=== PATIENT | male | born 1970 | race African-American/Black ===

== ENCOUNTER 2020-02-22 08:19 | Outpatient (CLI) | payer OTHER ==
--- NOTE | 2020-02-22 09:18 | MRI ---
MR OF THE RIGHT KNEE WITHOUT CONTRAST INDICATION: 49-year-old male with internal derangement of the right knee TECHNIQUE: Axial and coronal PD fat sat, sagittal T2 fat sat, sagittal PD turbo spin echo and T1 jonny nal images were obtained of the right knee. COMPARISON: Right knee radiograph dated January 05, 2020 FINDINGS: Joint effusion: None. Semimembranosus-medial gastrocnemius popliteal cyst: Tiny Wong's cyst Ligaments: The ACL, PCL, MCL and LCLC are intact. Extensor mechanism: Intact. Menisci: There is a horizontally oriented tear involving the body and posterior horn of the medial me niscus. There is a horizontally oriented oblique flap tear involving the posterior body, posterior junction and posterior horn of the lateral meniscus with a displaced meniscal flap overlying the ante rior junction of the lateral meniscus. Articular cartilage: There is a mild diffuse thinning of the articular cartilage of the major compart ments of the right knee. No large full-thickness defect is evident. Osseous structures: Normal marrow signal. Popliteus and IT band: Normal. IMPRESSION: 1. Medial and lateral meniscal tears. 2. 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
== END 2020-02-22 08:20 | disposition home or self-care (01) ==
LOC: BICMRI 08:19
PROVIDERS: ATTEND Family Medicine
DX: M23.91 Unspecified internal derangement of right knee (principal); S83.241A Other tear of medial meniscus, current injury, right knee, initial encounter; S83.281A Other tear of lateral meniscus, current injury, right knee, initial encounter

== ENCOUNTER 2020-03-28 08:51 | Outpatient (CLI) | payer OTHER ==
[2020-03-29 11:36] LABS: SARS-CoV-2 MS2 Positive; SARS-CoV-2 N Gene Negative; SARS-CoV-2 S Gene Negative; SARS-CoV-2 by NAA Not Detected (NotDetected); SARS-CoV-2 orf1ab Negative
== END 2020-03-28 08:52 | disposition home or self-care (01) ==
LOC: LABBT 08:51
PROVIDERS: ATTEND Orthopaedic Surgery
DX: Z01.812 Encounter for preprocedural laboratory examination (principal); Z11.59 Encounter for screening for other viral diseases; S83.241A Other tear of medial meniscus, current injury, right knee, initial encounter; S83.281A Other tear of lateral meniscus, current injury, right knee, initial encounter
CPT/HCPCS: 87635; U0003

== ENCOUNTER 2020-03-31 06:17 | Day surgery (SDC) | payer OTHER ==
[2020-03-28 12:48] VITALS: BMI 45.4
[2020-03-31] MEDS ORDERED: PROPOFOL 20 ML ONE (06:34)
[2020-03-31] MEDS ORDERED: Clindamycin/D5W 900 mg/50 ml Premix Bag ONE (07:20)
--- NOTE | 2020-03-31 09:41 | OP ---
DATE OF PROCEDURE: 03/31/2020 TITLE OF PROCEDURE: Right knee arthroscopic partial medial and lateral meniscectomy. ANESTHESIA: General. BLOOD LOSS: Minimal. SPECIMEN: None. DRAINS: None. COMPLICATIONS: None. DESCRIPTION OF PROCEDURE: The patient was taken to the operating room where general anesthesia was induced. Right leg was prepped and draped in the usual sterile fashion. Scope was placed in the lateral portal. Probe was placed in the medial portal. Patellofemoral joint was free of disease. There was a very complex tear involving most of the lateral meniscus all the way back almost to the popliteus recess. I performed a partial lateral meniscectomy and was able to leave a little bit of tissue connecting the anterior and posterior portions of the meniscus. There was only minimal degenerative changes. ACL was intact. Medial compartment had a small posterior horn of the meniscus tear, which was debrided using basket forceps and smoothed using a 4.0 full-radius resector. Knee was then drained. Sterile dressings applied. Job ID: [id number]
[2020-03-31] MEDS ORDERED: HYDROcodone/Acetaminophen 5/325 mg Tablet ONE (09:57)
== END 2020-03-31 11:03 | disposition home or self-care (01) ==
LOC: SDC 06:17
PROVIDERS: ATTEND Orthopaedic Surgery
DX: S83.271A Complex tear of lateral meniscus, current injury, right knee, initial encounter (principal); S83.241A Other tear of medial meniscus, current injury, right knee, initial encounter; I10 Essential (primary) hypertension; E78.5 Hyperlipidemia, unspecified; Z79.82 Long term (current) use of aspirin; Z79.899 Other long term (current) drug therapy; Z88.0 Allergy status to penicillin; Z96.652 Presence of left artificial knee joint; X58.XXXA Exposure to other specified factors, initial encounter
CPT/HCPCS: J0690; J2704; J3490